=== PATIENT | male | born 1940 | race Caucasian/White ===

== ENCOUNTER 2020-01-02 20:19 | Observation (INO) ==
[2020-01-02 21:54] LABS: Basophils # 0.1 10*3/uL (0.0-0.2); Basophils % 0.5 % (0.0-0.8); Eosinophils # 0.2 10*3/uL (0.0-0.87); Eosinophils % 2.2 % (0.00-10.9); Hematocrit 40.3 VOL% (42.0-52.0); Hemoglobin 12.8 GM/DL (14.0-18.0); Immature Granulocytes % 0.4 %; Immature Granulocytes Absolute 0.04 #; Lymphocytes % 21.9 % (21.2-54.2); Mean Corpuscular HGB Conc 31.8 GM/DL (32-36); Mean Corpuscular Volume 93.7 FL (87-102); Mean Platelet Volume 9.2 FL (9.6-12.0); Monocytes % 9.2 % (1.7-12.7); Neutrophils % 65.8 % (38.7-73.9); Platelet Count 198 T/CUMM (130-400); Red Cell Distribution Width 12.9 % (9.3-17.3); White Blood Count 9.2 T/CUMM (4-12)
[2020-01-02 22:15] LABS: Albumin 3.5 G/DL (3.4-5.0); Calcium 9.2 MG/DL (8.5-10.1); Osmolality,Calculated 274.8 MOS/KG (273-304); Total Protein 7.9 G/DL (6.4-8.3); Uric Acid 6.6 MG/DL (3.5-7.2)
[2020-01-02] MEDS ORDERED: cefTRIAXone 1,000 MG in SODIUM CHLORIDE 0.9% 100 ML IV STA (22:28)
[2020-01-02] MEDS ORDERED: KETOROLAC 30 MG/1 ML VIAL IV STA (22:32)
[2020-01-02] MEDS ORDERED: VANCOMYCIN INJ 1,000 MG in SODIUM CHLORIDE 0.9% 250 ML IV STA (22:58)
[2020-01-02] MEDS ORDERED: DEXTROSE 10% 250 ML BAG IV PRN (23:00)
[2020-01-02] MEDS ORDERED: ACETAMINOPHEN 325 MG TABLET PO PRN (23:00)
[2020-01-02] MEDS ORDERED: ONDANSETRON 4 MG/2 ML VIAL IV PRN (23:00)
[2020-01-02] MEDS ORDERED: GLUCAGON 1 MG VIAL IM PRN (23:00)
[2020-01-03] MEDS ORDERED: SERTRALINE 25 MG TABLET PO PRN (00:23)
[2020-01-03] MEDS ORDERED: COLCHICINE 0.6 MG CAPSULE PO PRN (00:24)
[2020-01-03] MEDS: FLUTICASONE 50 MCG NASAL SPRAY 16 GM BOTTLE BOTH NARES SCH ×3 (01:06→21:27)
[2020-01-03] MEDS: KETOROLAC 30 MG/1 ML VIAL IV PRN ×2 (04:13→21:23)
[2020-01-03] MEDS: hydrOXYzine HCL 25 MG TABLET PO PRN ×2 (04:13→15:51)
[2020-01-03 07:08] LABS: Basophils % 0.5 % (0.0-0.8); Eosinophils # 0.2 10*3/uL (0.0-0.87); Eosinophils % 1.7 % (0.00-10.9); Hemoglobin 12.3 GM/DL (14.0-18.0); Immature Granulocytes % 0.2 %; Immature Granulocytes Absolute 0.02 #; Lymphocytes # 1.7 10*3/uL (1.4-4.0); Lymphocytes % 19.1 % (21.2-54.2); Mean Corpuscular HGB Conc 33.2 GM/DL (32-36); Mean Corpuscular Volume 92.3 FL (87-102); Mean Platelet Volume 9.5 FL (9.6-12.0); Monocytes % 10.4 % (1.7-12.7); Neutrophils % 68.1 % (38.7-73.9); Platelet Count 182 T/CUMM (130-400); Red Blood Count 4.01 MC/CUMM (3.8-5.5); Red Cell Distribution Width 12.8 % (9.3-17.3); White Blood Count 8.7 T/CUMM (4-12)
[2020-01-03] MEDS ORDERED: INSULIN ASPART PROTAMINE/ASPART 70/30 100 UNIT/ML SUBCUT SCH (07:30)
[2020-01-03 07:42] LABS: Calcium 8.6 MG/DL (8.5-10.1); Osmolality,Calculated 279.5 MOS/KG (273-304)
[2020-01-03] MEDS: OMEGA 3 ACID ETHYL ESTERS 1 GM CAPSULE PO SCH (08:38)
[2020-01-03] MEDS: DOCUSATE SODIUM 100 MG CAPSULE PO SCH ×2 (08:38→21:18)
[2020-01-03] MEDS: CHOLECALCIFEROL 1,000 UNIT TABLET PO SCH (08:38)
[2020-01-03] MEDS: lisinopriL 2.5 MG TABLET PO SCH (08:38)
[2020-01-03] MEDS: PANTOPRAZOLE 40 MG TABLET PO SCH (08:39)
[2020-01-03] MEDS: COLCHICINE 0.6 MG CAPSULE PO SCH ×2 (08:43→21:18)
[2020-01-03] MEDS: ALPRAZolam 0.25 MG TABLET PO SCH ×2 (08:46→21:18)
[2020-01-03] MEDS ORDERED: SERTRALINE 25 MG TABLET PO SCH (09:00)
[2020-01-03] MEDS ORDERED: VANCOMYCIN INJ 1,500 MG in SODIUM CHLORIDE 0.9% 500 ML IV ONE (10:00)
[2020-01-03] MEDS ORDERED: INSULIN NPH/REGULAR 70/30 100 UNIT/ML SUBCUT SCH (16:30)
[2020-01-04] MEDS ORDERED: VANCOMYCIN INJ 1,500 MG in SODIUM CHLORIDE 0.9% 500 ML IV SCH (03:00)
[2020-01-04 05:19] LABS: Basophils % 0.5 % (0.0-0.8); Eosinophils # 0.3 10*3/uL (0.0-0.87); Eosinophils % 4.7 % (0.00-10.9); Hemoglobin 11.5 GM/DL (14.0-18.0); Immature Granulocytes % 0.3 %; Immature Granulocytes Absolute 0.02 #; Lymphocytes # 2.3 10*3/uL (1.4-4.0); Lymphocytes % 31.2 % (21.2-54.2); Mean Corpuscular HGB Conc 32.9 GM/DL (32-36); Mean Corpuscular Volume 92.3 FL (87-102); Mean Platelet Volume 9.5 FL (9.6-12.0); Monocytes % 8.8 % (1.7-12.7); Neutrophils % 54.5 % (38.7-73.9); Platelet Count 176 T/CUMM (130-400); Red Blood Count 3.79 MC/CUMM (3.8-5.5); Red Cell Distribution Width 12.8 % (9.3-17.3); White Blood Count 7.3 T/CUMM (4-12)
[2020-01-04 05:28] LABS: Calcium 8.3 MG/DL (8.5-10.1); Osmolality,Calculated 279.5 MOS/KG (273-304)
[2020-01-04] MEDS ORDERED: INSULIN NPH/REGULAR 70/30 100 UNIT/ML SUBCUT SCH (07:30)
[2020-01-04] MEDS: OMEGA 3 ACID ETHYL ESTERS 1 GM CAPSULE PO SCH (08:32)
[2020-01-04] MEDS: ALPRAZolam 0.25 MG TABLET PO SCH (08:33)
[2020-01-04] MEDS: lisinopriL 2.5 MG TABLET PO SCH (08:33)
[2020-01-04] MEDS: DOCUSATE SODIUM 100 MG CAPSULE PO SCH (08:33)
[2020-01-04] MEDS: CHOLECALCIFEROL 1,000 UNIT TABLET PO SCH (08:33)
[2020-01-04] MEDS: COLCHICINE 0.6 MG CAPSULE PO SCH (08:33)
[2020-01-04] MEDS: PANTOPRAZOLE 40 MG TABLET PO SCH (08:35)
[2020-01-04] MEDS: FLUTICASONE 50 MCG NASAL SPRAY 16 GM BOTTLE BOTH NARES SCH (08:37)
[2020-01-04] MEDS ORDERED: SERTRALINE 25 MG TABLET PO SCH (09:00)
[2020-01-04 11:55] VITALS: BP 96/45
== END 2020-01-04 14:58 | disposition home or self-care (01) ==
LOC: N.EDINP 20:19 → N.ED 20:19 → N.2E 23:18
PROVIDERS: ADMIT Internal Medicine; ATTEND Internal Medicine